=== PATIENT | female | born 1955 | race Caucasian/White ===

== ENCOUNTER 2021-03-18 17:35 | Inpatient (IN) ==
[2021-03-18] MEDS ORDERED: SODIUM CHLORIDE 0.9% 1,000 ML IV STA (18:14)
[2021-03-18] MEDS ORDERED: ONDANSETRON 4 MG/2 ML VIAL IV ONE (18:14)
[2021-03-18 18:40] LABS: Basophils # 0.1 10*3/uL (0.0-0.2); Eosinophils # 0.2 10*3/uL (0.0-0.87); Eosinophils % 1.1 % (0.00-10.9); Hematocrit 41.6 VOL% (35.7-47.0); Immature Granulocytes % 0.6 %; Immature Granulocytes Absolute 0.09 #; Lymphocytes # 2.9 10*3/uL (1.4-4.0); Mean Corpuscular HGB Conc 31.3 GM/DL (32-36); Mean Corpuscular Volume 90.6 FL (87-102); Mean Platelet Volume 11.8 FL (9.6-12.0); Monocytes % 6.6 % (1.7-12.7); Neutrophils % 70.7 % (38.7-73.9); Platelet Count 325 T/CUMM (130-400); Red Blood Count 4.59 MC/CUMM (3.8-5.5); Red Cell Distribution Width 13.6 % (9.3-17.3); White Blood Count 14.2 T/CUMM (4-12)
[2021-03-18 19:07] LABS: Albumin 4.2 G/DL (3.4-5.0); Bilirubin,Total 0.5 MG/DL (0.20-1.00); Calcium 9.4 MG/DL (8.5-10.1); Osmolality,Calculated 281.4 MOS/KG (273-304); Potassium 5.9 MMOL/L (3.5-5.1); Total Protein 7.9 G/DL (6.4-8.2)
[2021-03-18 19:58] LABS: Bacteria,Urine Moderate /HPF (Few); Bilirubin,Urine Negative (Negative); Blood, Urine Negative (Negative); Glucose,Urine (UA) Negative (Negative); Hyaline Casts,Urine 35 /LPF (0-3); Ketones,Urine Negative (Negative); Mucus,Urine Occasional /LPF (Occasional); Nitrite,Urine Positive (Negative); Protein,Urine 100 MG/DL; RBC,Urine 8 /HPF (0-4); Squamous Epithelial Cell,Urine Few /HPF (0-10); Urine Appearance Slightly Hazy (Clear); Urine Color Amber (Yellow); Urine Specific Gravity 1.015 (1.001-1.035)
[2021-03-18] MEDS ORDERED: LEVOFLOXACIN INJ 500 MG/100 ML PREMIX IV ONE (20:04)
[2021-03-18] MEDS ORDERED: DEXTROSE 50% 25 GM/50 ML VIAL IV STA (20:47)
[2021-03-18] MEDS ORDERED: INSULIN REGULAR 100 UNIT/ML IV STA (20:47)
[2021-03-18] MEDS ORDERED: ONDANSETRON 4 MG/2 ML VIAL IV PRN (22:03)
[2021-03-18] MEDS ORDERED: DEXTROSE 50% 25 GM/50 ML VIAL IV PRN ×2 (22:03→22:06)
[2021-03-18] MEDS ORDERED: GLUCAGON 1 MG VIAL IM PRN (22:03)
[2021-03-18] MEDS ORDERED: ENOXAPARIN 80 MG/0.8 ML SYRINGE SUBCUT STA (22:05)
[2021-03-19 03:28] LABS: Calcium 8.8 MG/DL (8.5-10.1); Osmolality,Calculated 279.2 MOS/KG (273-304); Potassium 5.4 MMOL/L (3.5-5.1); Thyroid Stimulating Hormone 3.86 uIU/ml (0.358-3.74)
[2021-03-19] MEDS ORDERED: SODIUM CHLORIDE 0.9% 500 ML IV SCH (04:00)
[2021-03-19 07:56] LABS: Basophils # 0.1 10*3/uL (0.0-0.2); Basophils % 0.9 % (0.0-0.8); Eosinophils # 0.1 10*3/uL (0.0-0.87); Eosinophils % 0.8 % (0.00-10.9); Hematocrit 39.1 VOL% (35.7-47.0); Hemoglobin 11.7 GM/DL (12.0-16.0); Immature Granulocytes % 0.4 %; Immature Granulocytes Absolute 0.04 #; Lymphocytes # 2.9 10*3/uL (1.4-4.0); Lymphocytes % 26.3 % (21.3-54.2); Mean Corpuscular HGB Conc 29.9 GM/DL (32-36); Mean Corpuscular Volume 94.9 FL (87-102); Mean Platelet Volume 12.4 FL (9.6-12.0); Monocytes % 8.4 % (1.7-12.7); Neutrophils % 63.2 % (38.7-73.9); Platelet Count 274 T/CUMM (130-400); Red Blood Count 4.12 MC/CUMM (3.8-5.5); Red Cell Distribution Width 13.9 % (9.3-17.3); White Blood Count 11.1 T/CUMM (4-12)
[2021-03-19] MEDS: ASCORBIC ACID 500 MG TABLET PO SCH ×2 (08:36→21:21)
[2021-03-19] MEDS: CLOPIDOGREL 75 MG TABLET PO SCH (08:36)
[2021-03-19] MEDS: ASPIRIN EC 81 MG TABLET PO SCH (08:36)
[2021-03-19] MEDS: PANTOPRAZOLE 40 MG VIAL IV SCH (08:37)
[2021-03-19] MEDS: INSULIN REGULAR 100 UNIT/ML SUBCUT SCH ×4 (08:37→21:20)
[2021-03-19] MEDS ORDERED: MECLIZINE 25 MG TABLET PO PRN (08:41)
[2021-03-19] MEDS ORDERED: ONDANSETRON 4 MG/2 ML VIAL IV PRN (08:42)
[2021-03-19] MEDS: ISOSORBIDE DINITRATE 10 MG TABLET PO SCH (10:02)
[2021-03-19] MEDS: SODIUM ZIRCONIUM CYCLOSILICATE 10 GM PACK PO SCH ×2 (10:03→21:21)
[2021-03-19] MEDS ORDERED: INSULIN GLARGINE 100 UNIT/ML SUBCUT SCH (21:00)
[2021-03-19] MEDS ORDERED: SIMVASTATIN 20 MG TABLET PO SCH (21:00)
[2021-03-19] MEDS ORDERED: LEVOFLOXACIN INJ 250 MG/50 ML PREMIX IV SCH (22:00)
[2021-03-19] MEDS ORDERED: CYCLOBENZAPRINE 10 MG TABLET PO SCH (22:30)
[2021-03-20 04:36] LABS: Basophils # 0.1 10*3/uL (0.0-0.2); Eosinophils # 0.2 10*3/uL (0.0-0.87); Eosinophils % 2.8 % (0.00-10.9); Hematocrit 32.8 VOL% (35.7-47.0); Hemoglobin 10.4 GM/DL (12.0-16.0); Immature Granulocytes % 0.8 %; Immature Granulocytes Absolute 0.07 #; Lymphocytes # 2.2 10*3/uL (1.4-4.0); Mean Corpuscular HGB Conc 31.7 GM/DL (32-36); Mean Corpuscular Volume 90.9 FL (87-102); Mean Platelet Volume 11.7 FL (9.6-12.0); Monocytes % 10.5 % (1.7-12.7); Neutrophils % 59.9 % (38.7-73.9); Platelet Count 189 T/CUMM (130-400); Red Blood Count 3.61 MC/CUMM (3.8-5.5); Red Cell Distribution Width 13.6 % (9.3-17.3); White Blood Count 8.7 T/CUMM (4-12)
[2021-03-20 05:08] LABS: Calcium 8.4 MG/DL (8.5-10.1); Osmolality,Calculated 285.7 MOS/KG (273-304); Potassium 4.1 MMOL/L (3.5-5.1)
[2021-03-20] MEDS: CLOPIDOGREL 75 MG TABLET PO SCH (08:56)
[2021-03-20] MEDS: ASCORBIC ACID 500 MG TABLET PO SCH (08:56)
[2021-03-20] MEDS: INSULIN REGULAR 100 UNIT/ML SUBCUT SCH ×2 (08:57→13:38)
[2021-03-20] MEDS: ASPIRIN EC 81 MG TABLET PO SCH (08:57)
[2021-03-20] MEDS: SODIUM ZIRCONIUM CYCLOSILICATE 10 GM PACK PO SCH (08:58)
[2021-03-20] MEDS: PANTOPRAZOLE 40 MG VIAL IV SCH (08:58)
[2021-03-20] MEDS: ISOSORBIDE DINITRATE 10 MG TABLET PO SCH (09:37)
[2021-03-20 11:23] VITALS: BP 101/43
[2021-03-20] MEDS: GABAPENTIN 300 MG CAPSULE PO SCH ×2 (13:38→13:56)
== END 2021-03-20 14:05 | disposition home or self-care (01) | DRG 683 ==
LOC: N.ED 17:35 → N.EDINP 22:06 → N.TELEN 23:23
PROVIDERS: ADMIT Hospitalist; ATTEND Hospitalist